=== PATIENT | male | born 1980 | race Caucasian/White ===

== ENCOUNTER → 2017-02-06 15:15 | Outpatient (CLI) | payer SELFPAY ==
--- NOTE | 2017-02-06 15:33 | XR_ITS ---
XR CHEST 2V HISTORY: ITS.REASON: LT SIDED PLEURITIC PAIN ORDERING PHYSICIAN: Gabriel Brown MD PATIENT AGE: 36 years COMPARISON: None available FINDINGS: The cardiomediastinal silhouette and pulmonary vascularity are within normal limits. There are bibasilar atelectatic changes. The upper lobes are clear. There may be a small left pleural effusion with minimal blunting of the left CP angle.. No acute bony abnormalities. IMPRESSION: Bibasilar atelectasis with small left pleural effusion
== END ==
PROVIDERS: PCP Family Medicine; Visit Provider Family Medicine
DX: R07.81 Pleurodynia (principal)
CPT/HCPCS: 71046